=== PATIENT | male | born 1975 | race Caucasian/White ===

== ENCOUNTER 2017-07-18 20:50 | Emergency (ER) | payer OTHER ==
[~2017-07-18] VITALS: Ht 170.2 cm; Wt 83.9 kg
[2017-07-18] MEDS ORDERED: NORCO 5-325 TA1 EAC1 PO (22:15)
[2017-07-18 22:28] VITALS: BP 175/106
== END 2017-07-18 22:29 | disposition home or self-care (01) ==
LOC: M.ERS 20:50
DX: S22.41XA Multiple fractures of ribs, right side, initial encounter for closed fracture (principal); W03.XXXA Other fall on same level due to collision with another person, initial encounter; Y93.89 Activity, other specified; Y92.89 Other specified places as the place of occurrence of the external cause; Y99.8 Other external cause status

== ENCOUNTER → 2017-08-16 | Outpatient (CLI) | payer OTHER ==
[~2017-08-16] MED LIST: NORCO 5-325 TA1 EAC1 PO
== END ==
LOC: M.RAD 09:44
DX: S22.41XD Multiple fractures of ribs, right side, subsequent encounter for fracture with routine healing (principal); X58.XXXD Exposure to other specified factors, subsequent encounter

== ENCOUNTER 2019-01-11 10:50 | Emergency (ER) | payer OTHER ==
[~2019-01-11] VITALS: Ht 170.2 cm; Wt 81.7 kg
[2019-01-11] MEDS ORDERED: LEXAPRO 10 MG T10 MG PO (11:03)
[2019-01-11] MEDS ORDERED: NEXIUM40 MG PO (11:03)
[2019-01-11 11:15] LABS: MCH 31.3 pg (26.0-34.0); MCHC 34.2 g/dL (28.0-37.0); MCV 91.4 fL (80.0-100.0); MPV 7.6 fl. (7.2-11.1); NUCLEATED RBCS 0 /100WBC; PLATELET COUNT* 298 thou/uL (150-400); RBC 4.48 mil/uL (4.50-6.00); RDW-CV 13.3 % (10.5-14.5); WBC 12.1 thou/uL (4.0-11.0)
[2019-01-11 11:25] LABS: ANION GAP 11 mmol/L (7-16); BUN 13 mg/dL (7-18); CHLORIDE 101 mmol/L (98-107); CO2 26 mmol/L (21-32); CREATININE 1.2 mg/dL (0.6-1.3); GLUCOSE 158 mg/dL (70-99); POTASSIUM 3.3 mmol/L (3.5-5.1); SODIUM 138 mmol/L (136-145)
[2019-01-11 11:39] LABS: ALBUMIN 3.4 g/dL (3.4-5.0); ALKALINE PHOSPHATASE 99 U/L (46-116); LIPASE 87 U/L (73-393); NT-PRO BRAIN NAT PEPTIDE 294 pg/mL (<300); SGOT 32 U/L (15-37); SGPT 39 U/L (30-65); TOTAL BILIRUBIN 0.8 mg/dL (<0.1-1.0); TOTAL PROTEIN 8.1 g/dL (6.4-8.2); TROPONIN-I LEVEL <0.06 ng/mL (<0.06)
[2019-01-11 11:46] LABS: ABSOLUTE LYMPHOCYTES 0.7 thou/uL (0.8-5.3); ABSOLUTE MONOCYTES 0.4 thou/uL (0.0-1.2); ANISOCYTOSIS 1+; PLATELET ESTIMATE ADEQUATE; POIKILOCYTOSIS 1+
[2019-01-11] MEDS ORDERED: TESSALON PERLE100 M1 PO (13:38)
[2019-01-11 13:49] VITALS: BP 144/87
--- NOTE | 2019-01-12 16:54 | EKG ---
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: : 1975 Requested By: Michael Fermin Order Number: [id number] MD: Radhames Crowley Measurements Intervals [place] Rate: 86 P: 67 SD: 124 QRS: 26 QRSD: 99 T: 32 QT: 370 QTc: 443 Interpretive Statements Sinus rhythm Abnormal inferior Q waves Baseline wander in lead(s) V2 No previous ECG available for comparison Electronically Signed On 01-12-2019 16:54:33 CDT by Radhames Crowley [email or web address] <ELECTRONICALLY SIGNED> By: Radhames Crowley MD, [facility] 01/12/19 1654 1059 1059 Radhames Crowley MD, FACC /EPI
== END 2019-01-11 13:50 | disposition home or self-care (01) ==
LOC: M.ERS 10:50
PROVIDERS: Emergency Medicine Emergency Medical Services
DX: J00 Acute nasopharyngitis [common cold] (principal); F41.9 Anxiety disorder, unspecified